=== PATIENT | male | born 1990 | race Caucasian/White ===

== ENCOUNTER → 2019-10-02 | Outpatient (CLI) | payer SELFPAY | LOC: GMAJ 11:47 | PROVIDERS: ATTEND Family Medicine | DX: Z79.899 Other long term (current) drug therapy (principal) ==

== ENCOUNTER → 2019-10-12 | Outpatient (CLI) | payer BC | LOC: GMAJ 12:32 | PROVIDERS: ATTEND Family Medicine | DX: R53.83 Other fatigue (principal) ==